=== PATIENT | male | born 1950 | race Caucasian/White ===

== ENCOUNTER 2022-11-03 19:29 | Emergency (ER) | payer MEDICARE, OTHER ==
[~2022-11-03] VITALS: Ht 180.3 cm; Wt 79.4 kg
--- NOTE | 2022-11-03 19:58 | ED GU-Female ---
General Chief Complaint: - Reproductive Stated Complaint: ENLARGED TESTICLE Source: patient Exam Limitations: no limitations History of Present Illness Date Seen by Provider: Nov 03, 2022 Time Seen by Provider: 19:41 Initial Comments Here with report of right testicular swelling that is nonpainful. Denies dysuria or problems going to the bathroom. Denies blood in the stool. Follows occasionally with Dr. Bhat but otherwise does not have regular appointments. He denies significant medical problems and does not take any medicines. Noticed that his right testicle started swelling about 2 to 3 weeks ago and then has markedly swollen over the last 10 days. Denies abdominal. Denies fever or chills. 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, single partner Associated Symptoms: No abdominal pain, No dysuria, No fever/chills, No nausea/vomiting; swelling; No urinary frequency Allergies and Home Medications Allergies Coded Allergies: No Known Drug Allergies (Unverified , 11/03/22) Patient Home Medication List Home Medication List Reviewed: Yes Review of Systems Review of Systems Constitutional: see HPI Respiratory: no symptoms reported Cardiovascular: no symptoms reported Gastrointestinal: no symptoms reported Genitourinary: see HPI Skin: No change in color, No lesions Past Czkalct-Pgeprw-Cuoxjv Hx Patient Social History Tobacco Use?: No Use of E-Cig and/or Vaping dev: No Substance use?: No Alcohol Use?: Yes Alcohol type: Beer Alcohol Frequency: Rarely Past Medical History Surgeries: No Respiratory: No Cardiac: No Neurological: No Genitourinary: No Gastrointestinal: No Musculoskeletal: No Family Medical History Reviewed Nursing Family Hx Physical Exam Vital Signs Vital Signs - First Documented 11/03/22 19:35 Temp 36.6 Pulse 101 Resp 16 B/P (MAP) 168/91 (116) Pulse Ox 97 O2 Delivery Room Air Capillary Refill : Height, Weight, BMI Height: '" Weight: lbs. oz. kg; BMI Method: General Appearance: WD/WN, no apparent distress Cardiovascular: regular rate, rhythm, no murmur Respiratory: lungs clear, normal breath sounds Gastrointestinal: non tender, soft Genital/Rectal: other (Moderately swollen right testicle is nontender. No obvious inguinal hernia. No obvious mass lesion noted and it seems that the entire right testicle is swollen. Left testicle normal on exam) Rectal: normal exam, normal rectal tone, heme negative stool, other (No obvious prostate lesions and prostate is not boggy and seems equal bilateral on rectal exam) Neurologic/Psychiatric: alert, oriented x 3 Skin: normal color, warm/dry Progress/Results/Core Measures Suspected Sepsis SIRS Temperature: Pulse: Respiratory Rate: Blood Pressure / Mean: Results/Orders Lab Results Laboratory Tests Test 11/03/22 19:50 Range/Units Urine Color YELLOW Urine Clarity CLEAR Urine pH 5.5 5-9 Urine Specific [place] >=1.030 1.016-1.022 Urine Protein NEGATIVE NEGATIVE Urine Glucose (UA) NEGATIVE NEGATIVE Urine Ketones NEGATIVE NEGATIVE Urine Nitrite NEGATIVE NEGATIVE Urine Bilirubin NEGATIVE NEGATIVE Urine Urobilinogen 0.2 < = 1.0 MG/DL Urine Leukocyte Esterase NEGATIVE NEGATIVE Urine RBC (Auto) NEGATIVE NEGATIVE Urine RBC NONE /HPF Urine WBC NONE /HPF Urine Crystals PRESENT H /LPF Urine Amorphous Sediment RARE NAIN URATES H /LPF Urine Bacteria NEGATIVE /HPF Urine Casts NONE /LPF Urine Mucus NEGATIVE /LPF Urine Culture Indicated NO My Orders Orders - PEYMAN COELLO MD Ua Culture If Indicated (11/03/22 19:53) Vital Signs/I&O 11/03/22 19:35 Temp 36.6 Pulse 101 Resp 16 B/P (MAP) 168/91 (116) Pulse Ox 97 O2 Delivery Room Air Capillary Refill : Progress Note : Progress Note Seen and evaluated. We will get UA. Ultrasound unavailable tonight but will need to be ordered for tomorrow morning. This was discussed with the patient and family who agree. Prostate exam done and no obvious lesion noted. Differential diagnosis includes testicular cancer, vascular congestion, infection. 2039: Hemoccult negative. UA is grossly negative. He does have urine concentration noted. He was slightly tachycardic on arrival and hypertensive at 160 systolic. He does admit to mowing all day long and I think he is slightly dehydrated and that likely accounts for the mild tachycardia. He also admits that he may be anxious about the visit. I did discuss with him about increasing fluid intake. I did discuss the importance of following up with Dr. Bhat and I will send a copy of the note to her. We have ordered outpatient ultrasound of the scrotum and he has instructions to return tomorrow morning at 0730 for appointment for ultrasound. He was also instructed on the importance of f ollowing up with urology and they are looking for urology in the [place] area. Patient and family are in agreement with plan and follow-up. Discharged home with return precautions. Patient verbalized understanding instructions and agreement with plan. We discussed the importance of follow-up for blood pressure and yearly maintenance and the follow-up with urology. Departure Impression Primary Impression: Testicular swelling, right Disposition: HOME, SELF-CARE Condition: Stable Departure-Patient Inst. Decision time for Depature: 20:44 Referrals: NO,LOCAL PHYSICIAN (PCP/Family) Primary Care Physician Patient Instructions: Testicular Injury, Testicular Cancer Add. Discharge Instructions: All discharge instructions reviewed with patient and/or family. Voiced understanding. You have been given an order for an ultrasound of the scrotum and specifically right testicle. You will return at 7:30 in the morning for check-in as instructed by the nurse. Follow-up with Dr. Bhat for recheck and further evaluation specifically of your blood pressure. You will need to make appointment with urologist of your choosing. Return for worse pain, swelling, fever, vomiting, weakness, breathing problems or other concerns as needed. Copy Copies To 1: PEDRO BHAT MD, TIMOTHY D MD Nov 03, 2022 19:58
[2022-11-03 20:01] LABS: BILIRUBIN,URINE NEGATIVE (NEGATIVE); CLARITY,URINE CLEAR; COLOR,URINE YELLOW; GLUCOSE, URINE (UA) NEGATIVE (NEGATIVE); KETONES,URINE NEGATIVE (NEGATIVE); LEUKOCYTE ESTERASE ,URINE NEGATIVE (NEGATIVE); NITRITE,URINE NEGATIVE (NEGATIVE); PH,URINE 5.5 (5-9); PROTEIN,URINE NEGATIVE (NEGATIVE)
[2022-11-03 20:10] LABS: AMORPHOUS SEDIMENT,UR RARE AMOR URATES /LPF; BACTERIA,URINE NEGATIVE /HPF
[2022-11-03 20:50] VITALS: BP 134/83
== END 2022-11-03 20:50 | disposition home or self-care (01) ==
LOC: ER 19:33
DX: N50.89 Other specified disorders of the male genital organs (principal); R03.0 Elevated blood-pressure reading, without diagnosis of hypertension
CPT/HCPCS: 81000; 99282

== ENCOUNTER → 2022-11-04 | Outpatient (CLI) | payer MEDICARE, OTHER ==
--- NOTE | 2022-11-04 09:04 | Diagnostic Imaging Report ---
PROCEDURE: US Scrotum. TECHNIQUE: Multiple real-time grayscale images were obtained over the scrotum in various projections bilaterally. INDICATION: Right scrotal swelling Testes are within normal limits for size and symmetric bilaterally. There is internal blood flow indicating no testicular torsion. There is epididymal prominence, greater on the right with a moderate to large right hydrocele. Right epididymal head contains an approximately 0.6 cm cyst. There is a complex left hydrocele with several loculations which contain internal debris. No varicocele or hernia is seen. IMPRESSION: Bilateral hydroceles with complexity on the left. There are several loculations and septations above the left testis with areas of internal debris. Superimposed infection cannot be excluded. No testicular torsion or testicular mass is seen. Dictated by: Dictated on workstation # [id number]
== END ==
LOC: RAD 07:41
PROVIDERS: ATTEND Emergency Medicine
DX: N43.3 Hydrocele, unspecified (principal); N50.89 Other specified disorders of the male genital organs
CPT/HCPCS: 76870

== ENCOUNTER 2023-04-16 12:09 | Day surgery (SDC) | payer MEDICARE, OTHER ==
[~2023-04-16] VITALS: Ht 180.3 cm; Wt 73.9 kg
[~2023-04-16 12:09] MED LIST: ASCO100024 PO; GLUC100016 PO; MAGN400T39 PO; MULT-1056 PO; OMEG1CAP58 PO; POTA99CA PO
[2023-04-16] MEDS ORDERED: LACTATED RINGERS 1,000 ML 1,000 ML IV ONE (12:18)
[2023-04-16] MEDS ORDERED: LACTATED RINGERS 1,000 ML 1,000 ML IV STA (12:19)
[2023-04-16] MEDS ORDERED: LIDOCAINE JELLY 2% 6 ML SYRINGE MM PRN (12:30)
--- NOTE | 2023-04-16 12:35 | Progress Note-Pre Operative ---
Pre-Operative Progress Note Date of Available H&P: Apr 16, 2023 Date H&P Reviewed: Apr 16, 2023 Time H&P Reviewed: 12:30 History & Physical: No changes noted Pre-Operative Diagnosis: screening o ALANNA BURTON MD Apr 16, 2023 12:35
[2023-04-16 12:36] VITALS: BP 131/86
--- NOTE | 2023-04-16 12:37 | Discharge Inst-Surgical ---
D/C Lap Instructions-MICHEAL Follow Up Activity as tolerated High Fiber Diet 25g or more per day Avoid Alcohol, Caffeine, Spicy [place] and Acid foods. Drink 64 fluid oz or more of fluids per day. Symptoms to Report: Fever over 101 degree F, Nausea/Vomiting If any problems/questions: Contact your physician or go to Emergency Room ALANNA BURTON MD Apr 16, 2023 12:37
[2023-04-16] MEDS ORDERED: ONDANSETRON 4 MG ORAL DISSOLVE TABLET PO PRN (12:45)
[2023-04-16] MEDS ORDERED: ONDANSETRON INJECTION 4 MG/2 ML (SDV) IVP PRN (12:45)
[2023-04-16] MEDS ORDERED: LIDOCAINE JELLY 2% 6 ML SYRINGE ONE (13:09)
[2023-04-16 14:40] VITALS: BP 103/62
--- NOTE | 2023-04-16 14:42 | Anesthesia-General Post-Op ---
MAC Patient Condition Mental Status/LOC: Same as Preop Cardiovascular: Satisfactory Nausea/Vomiting: Absent Respiratory: Satisfactory Pain: Controlled Complications: Absent Post Op Complications Complications None Follow Up Care/Instructions Patient Instructions None needed. Anesthesiology Discharge Order Discharge Order Patient is doing well, no complaints, stable vital signs, no apparent adverse anesthesia problems. No complications reported per nursing. JESSE MORENO CRNA Apr 16, 2023 14:42
[2023-04-16 14:45] VITALS: BP 113/65
[2023-04-16 14:49] VITALS: BP 113/65
[2023-04-16 14:50] VITALS: BP 113/65
--- NOTE | 2023-04-16 15:07 | Progress Note-Post Operative ---
Post-Operative Progess Note Surgeon (s)/Compliance Program Manager (s) Surgeon ALANNA BURTON MD Compliance Program Manager: none Pre-Operative Diagnosis screening colo Post-Operative Diagnosis severe sigmoid diverticulosis Procedure & Operative Findings Date of Procedure 04/16/23 Procedure Performed/Findings colonoscopy Anesthesia Type mac Estimated Blood Loss Estimated blood loss (mL): minimal Specimens/Packing Specimens Removed none ALANNA BURTON MD Apr 16, 2023 15:07
[2023-04-16 15:15] VITALS: BP 113/65
--- NOTE | 2023-04-17 00:44 | OPERATIVE REPORT ---
DATE OF SERVICE: 04/16/2023 PREOPERATIVE DIAGNOSIS: Screening colonoscopy. POSTOPERATIVE DIAGNOSIS: Severe sigmoid diverticulosis and redundant sigmoid colon. PROCEDURE: Colonoscopy. SURGEON: Alanna Burton MD ANESTHESIA: Monitored anesthesia care. ESTIMATED BLOOD LOSS: Minimal. FINDINGS: Severe sigmoid diverticulosis and redundant sigmoid colon. DISPOSITION: The patient tolerated the procedure well. INDICATIONS: The patient is a 73-year-old male referred over to us for screening colonoscopy. He has not had a colonoscopy up to this point in his life. He does report some constipation; however, does not report it to be severe and as well as no red blood per rectum, nor any dark tarry stools. He also does not report any family history of colon cancer. DESCRIPTION OF PROCEDURE: The patient was brought to the endoscopy suite and laid in the left lateral decubitus position. After adequate IV pain and sedative medications and monitored anesthesia care, a digital rectal examination was performed. No significant hemorrhoids identified. Normal sphincter tone was felt. There was a slightly enlarged prostate gland. There were no abnormal nodules or masses palpable of the prostate gland. The endoscope was then intubated into the anus, rectum gently insufflated. The endoscope was then advanced through the valves of [place] of the rectum. Through the sigmoid colon, he did have a severe sigmoid diverticulosis. There were no mucosal inflammatory changes to indicate any active diverticulitis. The patient also did have a tortuous sigmoid colon. The patient was then placed in supine position and we were able to safely navigate through the sigmoid colon as well as through the descending, transverse and ascending colon to the cecum, which were normal. No polyps or any neoplasms identified. The endoscope was then slowly withdrawn while taking a second look and suctioning of residual air with no additional findings. The patient tolerated the procedure well. We will recommend medical management with a high-fiber diet with addition of a fiber supplement, which should equal or exceed 30 grams daily as well as significant amounts of water to promote soft consistency stools on a daily basis. The overall goal is to prevent any further propagation or any complications related to the diverticulosis. If he is asymptomatic, he does not need another colonoscopy for another 10 years. Job ID: [id number] DocumentID: [id number] Dictated Date: 04/16/2023 14:44:01 Field Technician Date: 04/17/2023 00:42:00 Dictated By: ALANNA BURTON MD
== END 2023-04-16 15:15 | disposition home or self-care (01) ==
LOC: ENDO 12:09
PROVIDERS: ATTEND Surgery
DX: Z12.11 Encounter for screening for malignant neoplasm of colon (principal); K57.30 Diverticulosis of large intestine without perforation or abscess without bleeding
CPT/HCPCS: G0121